=== PATIENT | male | born 1940 | race Hispanic/Latino ===

== ENCOUNTER → 2018-05-27 | Outpatient (CLI) | payer MEDICARE, OTHER | END | disposition home or self-care (01) | LOC: RAH 14:25 | PROVIDERS: ATTEND Urology | DX: N40.0 Benign prostatic hyperplasia without lower urinary tract symptoms (principal); N28.1 Cyst of kidney, acquired; R31.0 Gross hematuria | CPT/HCPCS: 76770 ==

== ENCOUNTER → 2018-06-02 | Outpatient (CLI) | payer MEDICARE, OTHER | END | disposition home or self-care (01) | LOC: RAH 07:43 | PROVIDERS: ATTEND Urology | DX: K80.20 Calculus of gallbladder without cholecystitis without obstruction (principal) | CPT/HCPCS: 74176 ==

== ENCOUNTER → 2019-10-21 | Outpatient (CLI) | payer OTHER, MEDICARE ==
[~2019-10-21] MED LIST: DOXA2TAB2 PO; DUTA0.5C18 PO; GLYB1TAB32 PO; LEVO750T46 PO; SITA100T12 PO
== END | disposition home or self-care (01) ==
LOC: OIH 11:30
PROVIDERS: ATTEND Internal Medicine
DX: M54.5 Low back pain (principal); M54.2 Cervicalgia; R05 Cough
CPT/HCPCS: 71046; 72040; 72100

== ENCOUNTER → 2021-08-09 | Outpatient (CLI) | payer OTHER ==
[~2021-08-09] MED LIST changes: -DUTA0.5C18 PO; +DUTA0.5C37 PO
== END | disposition home or self-care (01) ==
LOC: OIH 10:36
PROVIDERS: ATTEND Internal Medicine
DX: M47.817 Spondylosis without myelopathy or radiculopathy, lumbosacral region (principal); M48.061 Spinal stenosis, lumbar region without neurogenic claudication
CPT/HCPCS: 72100